=== PATIENT | female | born 1965 | race Hispanic/Latino ===

== ENCOUNTER 2018-03-20 10:58 | Emergency (ER) | payer OTHER ==
[2018-03-20 10:58] VITALS: BMI 15.2
[2018-03-20 11:17] VITALS: O2SAT 95
--- NOTE | 2018-03-20 11:42 | C.PDOC ---
History Of Present Illness 53 year old female presents to ED with complaints of myalgia, malaise, and has had a non-productive cough for the past 2 weeks. Patient admits to dyspnea on exertion and alcohol abuse. Patient states that her last drink was this morning. Patient denies fever, nausea, vomiting, diarrhea, and chest pain. Chief Complaint (Nursing): Cough, Cold, Congestion History Per: Patient History/Exam Limitations: no limitations Onset/Duration Of Symptoms: Other (2 weeks) Current Symptoms Are (Timing): Still Present Past Medical History Reviewed: Historical Data, Nursing Documentation, Vital Signs Vital Signs: Last Vital Signs Temp 98.3 F 03/20/18 11:12 Pulse 99 H 03/20/18 11:12 Resp 19 03/20/18 11:12 BP 116/77 03/20/18 11:12 Pulse Ox 95 03/20/18 11:12 - Medical History PMH: Anxiety, Depression, Seizures (ETOH) Denies: Diabetes, Hepatitis, HIV, HTN, Chronic Kidney Disease, Sexually Transmitted Disease Surgical History: No Surg Hx - [facility] Procedures FAMILY THERAPY (09/11/14) GROUP PSYCHOTHERAPY (03/09/17) INDIV PSYCHOTHERAPY FOR SUBSTANCE ABUSE TREATMENT, SUPPORT (03/09/17) INDIV PSYCHOTHERAPY FOR SUBSTANCE ABUSE, COGNITIV BEHAVIORAL (03/09/17) INDIV PSYCHOTHERAPY FOR SUBSTANCE ABUSE, MOTIVATION ENHANCE (03/09/17) INDIVID PSYCHOTHERAP NEC (09/11/14) Family History: States: Unknown Family Hx - Social History Hx Alcohol Use: Yes Hx Substance Use: No - Immunization History Hx Tetanus Toxoid Vaccination: No Hx Influenza Vaccination: Yes Hx Pneumococcal Vaccination: Yes Review Of Systems Constitutional: Positive for: Malaise. Negative for: Fever Cardiovascular: Negative for: Chest Pain Respiratory: Positive for: Cough, Shortness of Breath Gastrointestinal: Negative for: Nausea, Vomiting, Diarrhea Musculoskeletal: Positive for: Other (myalgia) Psych: Positive for: Other (alcohol abuse) Physical Exam - Physical Exam Appears: Well, Non-toxic, No Acute Distress Skin: Normal Color, Warm, Dry Head: Atraumatic, Normacephalic Eye(s): bilateral: Normal Inspection Neck: Normal, Supple Chest: Symmetrical, No Deformity Cardiovascular: Rhythm Regular, No Murmur Respiratory: Normal Breath Sounds, No Rales, No Rhonchi, No Wheezing, Other (NARD) Gastrointestinal/Abdominal: Soft, No Tenderness, No Distention Extremity: Bilateral: Atraumatic, Normal Color And Temperature Pulses: Left Radial: Normal, Right Radial: Normal Neurological/Psych: Oriented x3, Normal Speech, Normal Cognition, Other (coop erative, no acute intoxication or withdrawl) ED Course And Treatment - Laboratory Results Result Diagrams: 03/20/18 12:15 03/20/18 12:15 ECG: Interpreted By Me ECG Rhythm: Sinus Rhythm ECG Interpretation: Normal, No Acute Changes Rate From EC O2 Sat by Pulse Oximetry: 95 Pulse Ox Interpretation: Normal - Radiology CXR: Interpreted by Me CXR Interpretation: Yes: Infiltrates (Questionable left sided posterior infiltrates) Progress - Data Reviewed Data Reviewed: Lab, Diagnostic imaging, Old records Medical Decision Making Medical Decision Making: Impression: Myalgia, malaise, and non-productive cough Plan: NaCl IV and Toradol IVP given to patient. EKG, Chest two views (PA/LT), CBC, and BMP ordered for patient. CXR showed questionable left sided posterior infiltrate. Disposition Counseled Patient/Family Regarding: Studies Performed, Diagnosis, Need For Followup, Rx Given - Disposition Referrals: YOUR,PMD [Other] Disposition: HOME/ ROUTINE Disposition Time: 13:07 Condition: IMPROVED Prescriptions: Ibuprofen [Motrin] 600 mg PO Q6 #30 tab levoFLOXacin [Levaquin] 750 mg PO DAILY #5 tab Instructions: Upper Respiratory Infection (ED) Forms: [facility] (Nauruan) - Clinical Impression Clinical Impression: Bronchitis - Scribe Statement The provider has reviewed the documentation as recorded by the Scribe (Mariaelena Haddad) Provider Attestation: All medical record entries made by the Scribe were at my direction and personally dictated by me. I have reviewed the chart and agree that the record accurately reflects my personal performance of the history, physical exam, medical decision making, and the department course for this patient. I have also personally directed, reviewed, and agree with the discharge instructions and disposition.
[2018-03-20] MEDS ORDERED: Sodium Chloride 0.9% 1,000 ML IV ONE (11:43)
[2018-03-20 12:19] LABS: BASO # 0.1 K/uL (0.0-0.2); BASO % 0.7 % (0.0-2.0); EOS % 0.1 % (0.0-4.0); HEMOGLOBIN 13.5 g/dL (11.0-16.0); LYMPH % 10.1 % (20.0-40.0); MEAN CORPUSCULAR HEMOGLOBIN 33.5 pg (27.0-31.0); MEAN CORPUSCULAR HGB CONC 34.2 g/dL (33.0-37.0); MEAN PLATELET VOLUME 7.6 fL (7.2-11.7); MONO # 0.7 K/uL (0.0-0.8); NEUT # 8.2 K/uL (1.8-7.0); NEUT % 82.1 % (50.0-75.0); RBC 4.01 Mil/uL (3.80-5.20); RED CELL DISTRIBUTION WIDTH 14.3 % (11.5-14.5); WHITE BLOOD COUNT 9.9 K/uL (4.8-10.8)
--- NOTE | 2018-03-20 12:31 | RAD ---
Chest x-ray two views HISTORY: Cough. Comparison: None available. Findings: Biapical pleural thickening. Hyperinflation suggestive for COPD and or emphysematous changes Bibasilar breast and nipple shadows. Patchy increased markings in the right mid to lower lung zone which may represent subtle infiltrate. Clinical correlation. Deformity of a left lower lateral rib. Heart size within normal limits. Impression: Biapical pleural thickening. Hyperinflation suggestive for COPD and or emphysematous changes Bibasilar breast and nipple shadows. Patchy increased markings in the right mid to lower lung zone which may represent subtle infiltrate. Clinical correlation. Deformity of a left lower lateral rib.
[2018-03-20 12:37] LABS: BLOOD UREA NITROGEN 14 mg/dL (7-17); CALCIUM 8.7 mg/dl (8.6-10.4); GFR NON-AFRICAN AMERICAN > 60
[2018-03-20 13:28] VITALS: BP 123/78; PULSE 96; RESP 20; TEMP 98.4
--- NOTE | 2018-03-25 23:49 | CARD ---
APPROVED REPORT Date of service: 03/20/2018 EKG Measurement Heart [id number] <Conclusion> Normal sinus rhythm Normal ECG
== END 2018-03-20 13:37 | disposition home or self-care (01) ==
LOC: C.ER 10:58
DX: J40 Bronchitis, not specified as acute or chronic (principal)
CPT/HCPCS: 71046; 80048; 85025; 93005; 96361; 96374; 99284; J1885; J7030